=== PATIENT | male | born 1935 | race Caucasian/White ===

== ENCOUNTER → 2021-06-05 09:01 | Outpatient (BNVA) | payer MEDICARE, OTHER, SELFPAY | PROVIDERS: Visit Provider Nurse Practitioner Family | DX: I10 Essential (primary) hypertension (principal); Z79.899 Other long term (current) drug therapy | CPT/HCPCS: 80053; 80061; 84443; 85025 ==

== ENCOUNTER → 2021-09-10 15:51 | Outpatient (BNVA) | payer MEDICARE, OTHER, SELFPAY | PROVIDERS: Visit Provider Family Medicine | DX: Z20.822 Contact with and (suspected) exposure to COVID-19 (principal) | CPT/HCPCS: 87635 ==

== ENCOUNTER → 2022-06-19 17:21 | Outpatient (BNVA) | payer MEDICARE, SELFPAY | PROVIDERS: Visit Provider Nurse Practitioner Family | DX: I10 Essential (primary) hypertension (principal) | CPT/HCPCS: 80053 ==

== ENCOUNTER → 2022-06-24 13:23 | Outpatient (BNVA) | payer MEDICARE, SELFPAY | PROVIDERS: Visit Provider Nurse Practitioner Family | DX: R60.9 Edema, unspecified (principal); R73.09 Other abnormal glucose | CPT/HCPCS: 80053; 83036 ==

== ENCOUNTER → 2022-08-19 09:44 | Outpatient (BNVA) | payer MEDICARE, SELFPAY | PROVIDERS: Visit Provider Nurse Practitioner Family | DX: I10 Essential (primary) hypertension (principal); Z23 Encounter for immunization | CPT/HCPCS: 80048 ==

== ENCOUNTER → 2023-05-15 09:42 | Outpatient (BNVA) | payer MEDICARE, SELFPAY | PROVIDERS: PCP Nurse Practitioner Family; Visit Provider Nurse Practitioner Family | DX: I10 Essential (primary) hypertension (principal); Z68.31 Body mass index [BMI] 31.0-31.9, adult; F03.90 Unspecified dementia, unspecified severity, without behavioral disturbance, psychotic disturbance, mood disturbance, and anxiety | CPT/HCPCS: 85025 ==

== ENCOUNTER → 2023-06-03 09:03 | Outpatient (BNVA) | payer MEDICARE, SELFPAY | PROVIDERS: PCP Nurse Practitioner Family; Visit Provider Nurse Practitioner Family | DX: I10 Essential (primary) hypertension (principal); F03.90 Unspecified dementia, unspecified severity, without behavioral disturbance, psychotic disturbance, mood disturbance, and anxiety; Z68.31 Body mass index [BMI] 31.0-31.9, adult | CPT/HCPCS: 80053; 80061; 82306; 82607; 84443 ==

== ENCOUNTER → 2023-10-14 10:23 | Outpatient (BNVA) | payer MEDICARE, SELFPAY | PROVIDERS: PCP Family Medicine Adult Medicine; Referring Provider Family Medicine Adult Medicine; Visit Provider Specialist | DX: F03.C2 Unspecified dementia, severe, with psychotic disturbance (principal) | CPT/HCPCS: 96116; 99205 ==

== ENCOUNTER → 2024-03-03 15:29 | Outpatient (BNVA) | payer MEDICARE, SELFPAY | PROVIDERS: PCP Family Medicine Adult Medicine; Visit Provider Specialist | DX: G31.83 Neurocognitive disorder with Lewy bodies (principal); F02.C2 Dementia in other diseases classified elsewhere, severe, with psychotic disturbance | CPT/HCPCS: 99214; 99215 ==

== ENCOUNTER → 2024-06-04 13:53 | Outpatient (BNVA) | payer MEDICARE, SELFPAY | PROVIDERS: PCP Family Medicine Adult Medicine; Visit Provider Specialist | DX: G31.83 Neurocognitive disorder with Lewy bodies (principal); F02.C2 Dementia in other diseases classified elsewhere, severe, with psychotic disturbance | CPT/HCPCS: 99214 ==

== ENCOUNTER 2024-07-10 16:17 | Outpatient (CLI) | payer MEDICARE, SELFPAY ==
--- NOTE | 2024-07-10 17:41 | XRR_ITS ---
PROCEDURE INFORMATION: Exam: XR Abdomen Exam date and time: 07/10/2024 5:43 PM Age: 89 years old Clinical indication: Prior surgery; Surgery date: 6+ months; Surgery type: Appendectomy; Patient HX: Constipation; Diarrhea TECHNIQUE: Imaging protocol: Radiologic exam of the abdomen. Views: Frontal supine view of the abdomen. 1 View. COMPARISON: No relevant prior studies available. FINDINGS: Tubes, catheters and devices: There are sternal wires consistent with previous sternotomy incision. Gastrointestinal tract: Diffusely air-filled loops of bowel in the abdomen in a nonobstructive pattern. Mild constipation. Intraperitoneal space: There is no free intraperitoneal air. No abnormal intraperitoneal calcifications. Organs: Surgical clips are present in the right upper quadrant, consistent with previous cholecystectomy. 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 Bone demineralization. Moderate thoracic spondylosis. No acute skeletal abnormality or aggressive osseous lesion. Soft tissues: No acute soft tissue findings. XR/XR abdomen 1V* [id number] IMPRESSION: Bloating and constipation without definitive bowel obstruction.
== END 2024-07-10 16:18 | disposition home or self-care (01) ==
PROVIDERS: PCP Family Medicine Adult Medicine
DX: R14.0 Abdominal distension (gaseous) (principal); R19.4 Change in bowel habit; I70.0 Atherosclerosis of aorta; M16.0 Bilateral primary osteoarthritis of hip; Z90.49 Acquired absence of other specified parts of digestive tract
CPT/HCPCS: 74018